=== PATIENT | male | born 1970 | race Two or more races ===

== ENCOUNTER 2018-04-01 21:34 | Inpatient (IN) | payer SELFPAY ==
[~2018-04-01] VITALS: Ht 167.6 cm; Wt 82.6 kg
[2018-04-01] MEDS ORDERED: QUEtiapine FUMARATE 100 MG TABLET PO PRN (22:45)
[2018-04-01] MEDS ORDERED: ZOLPIDEM TARTRATE 10 MG TABLET PO PRN (22:45)
[2018-04-01 23:04] VITALS: BP 154/100
[2018-04-01] MEDS ORDERED: PNEUMOCOCCAL VACCINE POLYVALENT 0.5 ML VIAL [PPSV23] IM ONE (23:15)
[2018-04-02] VITALS (10 sets, daily range): BP systolic 130–168; BP diastolic 75–102
[2018-04-02] MEDS: LORazepam 2 MG TABLET PO PRN (00:06)
[2018-04-02] MEDS: QUEtiapine FUMARATE 200 MG TABLET PO SCH ×2 (00:22→16:54)
[2018-04-02 06:37] LABS: GLUCOMETER DEV NAME(LOC) BV2N3; GLUCOSE,POINT OF CARE 123 MG/DL (70-110)
[2018-04-02 07:56] LABS: AMPHET/METH SCREEN,URINE NEGATIVE (NEGATIVE); BARBITURATE SCREEN, URINE NEGATIVE (NEGATIVE); BENZODIAZEPINES SCREEN,URINE NEGATIVE (NEGATIVE); CANNABINOID SCREEN,URINE NEGATIVE (NEGATIVE); COCAINE SCREEN,URINE NEGATIVE (NEGATIVE); METHADONE SCREEN, URINE NEGATIVE (NEGATIVE); OPIATE SCREEN,URINE POSITIVE (NEGATIVE)
[2018-04-02 07:57] LABS: PHENCYCLIDINE SCREEN,URINE NEGATIVE (NEGATIVE)
[2018-04-02 08:08] LABS: APPEARANCE,URINE CLOUDY (CLEAR); BILIRUBIN,URINE NEGATIVE (NEGATIVE); GLUCOSE, URINE (UA) 100 mg/dL (NEGATIVE); KETONES,URINE NEGATIVE (NEGATIVE); LEUKOCYTE ESTERASE ,URINE NEGATIVE (NEGATIVE); NITRATE,URINE NEGATIVE (NEGATIVE); OCCULT BLOOD,URINE NEGATIVE (NEGATIVE); PH,URINE 7.5 (5.0-8.0); PROTEIN,URINE NEGATIVE (NEGATIVE)
[2018-04-02] MEDS ORDERED: CloNIDine HCL 0.1 MG TABLET ONE (08:26)
[2018-04-02] MEDS: CloNIDine HCL 0.1 MG TABLET PO SCH ×2 (08:33→16:53)
[2018-04-02 08:37] LABS: BACTERIA,URINE Few /HPF (None Seen); RBC,URINE None Seen /HPF (0-2); WBC,URINE 0-2 /HPF (0-5)
[2018-04-02 08:38] LABS: AMORPHOUS SEDIMENT,UR Moderate /LPF (None Seen); SQUAMOUS EPITHELIAL CELL,UR Few /LPF (None Seen)
[2018-04-03 05:48] VITALS: BP_SYST 156; BP_SYST 161; BP_DIAS 106; BP_DIAS 93
[2018-04-03] MEDS: LORazepam 2 MG TABLET PO PRN (05:57)
[2018-04-03 07:12] LABS: GLUCOMETER DEV NAME(LOC) BV2N3; GLUCOSE,POINT OF CARE 207 MG/DL (70-110)
[2018-04-03] MEDS ORDERED: CloNIDine HCL 0.1 MG TABLET PO PRN (07:15)
[2018-04-03 07:42] VITALS: BP 154/97
[2018-04-03 08:24] LABS: BASOPHILS % (AUTO) 0.3 % (0.0-2.0); EOSINOPHILS % (AUTO) 2.7 % (1.0-6.0); HEMOGLOBIN 14.6 g/dL (13.5-17.5); LYMPHOCYTES # (AUTO) 2.4 K/uL (1.0-4.8); LYMPHOCYTES % (AUTO) 33.7 % (22.0-44.0); MEAN CORPUSCULAR HEMOGLOBIN 29.5 pg (26.0-34.0); MEAN CORPUSCULAR VOLUME 87 fL (80-100); MONOCYTES # (AUTO) 0.7 K/uL (0.1-1.0); NEUTROPHILS # (AUTO) 3.7 K/uL (1.8-7.7); NEUTROPHILS % (AUTO) 53.3 % (40.0-70.0); PLATELET COUNT (AUTO) 230 K/uL (150-450); RED BLOOD CELL COUNT(AUTO) 4.95 MIL/uL (4.50-5.90)
[2018-04-03 08:36] LABS: HEMOGLOBIN A1C 6.3 % (4.5-6.2)
[2018-04-03 08:48] LABS: ALANINE AMINOTRANSFERASE 198 U/L (12-78); ALBUMIN 3.3 g/dL (3.4-5.0); ALKALINE PHOSPHATASE 68 U/L (46-116); ANION GAP 6 mmol/L (8-16); ASPARTATE AMINOTRANSFERASE 131 U/L (15-37); BILIRUBIN,TOTAL 0.5 mg/dL (0.1-1.0); CALCIUM, TOTAL 9.5 mg/dL (8.8-10.5); CARBON DIOXIDE 31 mmol/L (22-29); CHLORIDE 102 mmol/L (98-107); CHOL/HDL RATIO 5.9 (4.2-7.3); CHOLESTEROL 220 mg/dL (131-200); CREATININE 1.01 mg/dL (0.60-1.30); FREE T4 (FREE THYROXINE) 0.94 ng/dL (0.76-1.46); GLOMERULAR FILTR. RATE CALC > 60 mL/min (>60); GLUCOSE,RANDOM 142 mg/dL (70-110); HDL CHOLESTEROL 37 mg/dL (40-60); LDL CHOL (CALC.) 144 mg/dL (0-130); POTASSIUM 4.2 mmol/L (3.5-5.1); SODIUM SERUM 139 mmol/L (136-145); THYROID STIMULATING HORMONE 1.54 uIU/mL (0.36-3.74); TOTAL PROTEIN, SERUM 7.4 g/dL (6.4-8.2); TRIGLYCERIDES 193 mg/dL (15-150); UREA NITROGEN, BLOOD 11 mg/dL (7-18)
[2018-04-03 08:54] VITALS: BP 148/91
[2018-04-03] MEDS ORDERED: AmLODIPine BESYLATE 5 MG TABLET PO SCH (09:00)
[2018-04-03] MEDS ORDERED: QUET200T29 PO (10:41)
[2018-04-03] MEDS ORDERED: AMLO-511 PO (12:17)
[2018-04-03] MEDS ORDERED: QUET200T PO (12:17)
== END 2018-04-03 14:00 | disposition home or self-care (01) | DRG 885 ==
LOC: B2S 22:10 → EDSTATUS 22:24
DX: F25.1 Schizoaffective disorder, depressive type (principal); R45.851 Suicidal ideations; E11.9 Type 2 diabetes mellitus without complications; I10 Essential (primary) hypertension; Z59.0 Homelessness
CPT/HCPCS: 80307; 83036; 84439; 84443; 99285